=== PATIENT | female | born 1950 | race Caucasian/White ===

== ENCOUNTER 2018-02-06 08:06 | Emergency (ER) | payer MEDICARE, BC ==
--- NOTE | 2018-02-06 09:01 | UC ---
Respiratory Complaint HPI - HPI Summary HPI Summary: Pt presents with 7- 8 days fatigue, cough with progressively yellow sputum, and mild body ache. Pt states decreased sleep second to cough. No fever,chills, rash. no cp, sob. Pt denies abdominal pain no n/v/d. with similar, but recoverd. Pt denies cha, ear pain. mild sinus congestion and PND. Pt has taken APAP and Dayquil with little improvement. Pt did get flu vaccine Pt's medication reviewed this visit - History of Current Complaint Chief Complaint: UCRespiratory Stated Complaint: CONGESTION, COUGH Time Seen by Provider: 02/06/18 08:23 Hx Obtained From: Patient ?: No Onset/Duration: Gradual Onset, Lasting Days Severity Initially: Mild Severity Currently: Mild Pain Intensity: 0 Pain Scale Used: 0-10 Numeric Character: Cough: Productive Associated Signs And Symptoms: Positive: Fever, URI, Nasal Congestion - Allergies/Home Medications Allergies/Adverse Reactions: Allergies Allergy/AdvReac Type Severity Reaction Status Date / Time amoxicillin [From Augmentin] Allergy Intermediate See Comment Verified 02/06/18 08:25 clavulanic acid Allergy Intermediate See Comment Verified 02/06/18 08:25 [From Augmentin] Home Medications: Home Medications Bimatoprost 0.01% OPHTH (NF) [Lumigan 0.01% OPHTH (NF)] 1 drop BOTH EYES QPM 11/25 [History Confirmed 02/06/18] Brinzolamide 1% OPHTH MITCHEL(NF) [Azopt 1% OPHTH MITCHEL(NF)] 1 drop BOTH EYES TID 11/25 [History Confirmed 02/06/18] Timolol 0.5% OPTH.MITCHEL* [Timoptic 0.5% Opth*] 1 drop BOTH EYES DAILY 02/06/18 [ History Confirmed 02/06/18] PMH/Surg Hx/FS Hx/Imm Hx Previously Healthy: Yes - Surgical History Surgical History: Yes Surgery Procedure, Year, and Place: appy - Family History Known Family History: Positive: Hypertension - Social History Occupation: Retired Lives: With Family Alcohol Use: None Substance Use Type: None Smoking Status (MU): Never Smoked Tobacco Review of Systems Constitutional: Fever ENT: Nasal Discharge, Sinus Congestion Respiratory: Cough All Other Systems Reviewed And Are Negative: Yes Physical Exam Triage Information Reviewed: Yes Appearance: Well-Appearing, No Pain Distress, Well-Nourished Vital Signs: Initial Vital Signs Temp 98.2 F 02/06/18 08:18 Pulse 63 02/06/18 08:18 Resp 16 02/06/18 08:18 BP 105/61 02/06/18 08:18 Pulse Ox 98 02/06/18 08:18 Vital Signs Reviewed: Yes Eye Exam: Normal Eyes: Positive: Conjunctiva Clear ENT: Positive: Other - TM x2 clear turbinates inflamemd mmoist no exudate, no erythema mild PND Dental Exam: Normal Neck exam: Normal Neck: Positive: Supple, Nontender, No Lymphadenopathy Respiratory Exam: Normal Respiratory: Positive: No respiratory distress, No accessory muscle use, Other: - mild cough no w/r Cardiovascular Exam: Normal Cardiovascular: Positive: RRR, No Murmur, Pulses Normal Abdominal Exam: Normal Abdomen Description: Positive: Nontender, No Organomegaly, Soft Bowel Sounds: Positive: Present Musculoskeletal Exam: Normal Musculoskeletal: Positive: Strength Intact Neurological Exam: Normal Neurological: Positive: Alert Psychological Exam: Normal Skin Exam: Normal UC Diagnostic Evaluation - Laboratory O2 Sat by Pulse Oximetry: 98 - Radiology Radiology Interpretation Completed By: Radiologist - NAD Re-Evaluation - Re-Evaluation First Eval Change: Worse - Pt with episode of emesis in radiology Pt with diarrhea upon return to room Second Eval Change: Improved - Pt states feeling better + influenza B reviewed with pt hydfate motrin/apap tamiflu (n/v/d started today) Respiratory Course/Dx - Course Course Of Treatment: Pt with cough, fatigue and body aches x 8 days. Pt reports fevers. Pt with productive coug. Will check flu, CXR. reassess - Differential Dx/Diagnosis Provider Diagnoses: influenza Discharge - Sign-Out/Discharge Documenting (check all that apply): Discharge - Discharge Plan Condition: Stable Disposition: HOME Prescriptions: Benzonatate CAP* [Tessalon 100 MG CAP*] 100 mg PO TID PRN #15 cap PRN Reason: Cough Oseltamivir CAP* [Tamiflu CAP*] 75 mg PO BID #10 cap Patient Education Materials: Influenza (ED) Referrals: Verónica Lino MD [Primary Care Provider] - Additional Instructions: - Stay well hydrated. Drink plenty of non-alcoholic, non-caffinated beverages. - Alternate ibuprofen (Advil, Motrin) 600mg and Tylenol every 3 hours for pain or fever. Take with food. Do NOT take for more than 4-5 days. - These infections are spread by secretions - do NOT share eating or drinking utensils - clean items you share with other people such as cell phones, computer mouse, TV remote, computer tablets, etc. After you have taken Tamiflu , change your toothbrush and your pillowcase. - get plenty of restful sleep - humidify the air in the room where you sleep - boil water, run a hot steam shower, vaporizer, cups of water by heat register - okay to take over the counter decongestant and cough medication. Okay to take cough medication as prescribed for cough. - get plenty of restful sleep. - contact your doctor or return with questions or concerns - Billing Disposition and Condition Condition: STABLE Disposition: HOME
--- NOTE | 2018-02-06 09:13 | RAD ---
HISTORY: Cough, fatigue COMPARISONS: None VIEWS: 4: Frontal dual-energy and lateral views of the chest. FINDINGS: CARDIOMEDIASTINAL SILHOUETTE: The cardiomediastinal silhouette is normal. MALISSA: The malissa are normal. PLEURA: The costophrenic angles are sharp. No pleural abnormalities are noted. LUNG PARENCHYMA: The lungs are clear. ABDOMEN: The upper abdomen is clear. There is no subphrenic gas. BONES AND SOFT TISSUES: No bone or soft tissue abnormalities are noted. OTHER: None. IMPRESSION: NO ACTIVE CARDIOPULMONARY DISEASE.
== END 2018-02-06 09:45 | disposition home or self-care (01) ==
LOC: UCCORT 08:06
DX: J11.1 Influenza due to unidentified influenza virus with other respiratory manifestations (principal); Z88.3 Allergy status to other anti-infective agents
CPT/HCPCS: 71046; 87502; 99202; G0463